=== PATIENT | female | born 2000 | race Caucasian/White ===

== ENCOUNTER → 2023-04-12 | Emergency (ER) | payer BC ==
[~2023-04-12] MED LIST: AMOX/K CLAV 875 MG TAB ONE
--- NOTE | 2023-04-12 22:17 | EDPHYS ---
Physician Documentation [facility] Name: Nae Olivarez Age: 22 yrs Sex: Female : 2000 Arrival Date: 04/12/2023 Time: 21:56 Bed Waiting Private MD: ED Physician Jose Guadalupe Laureano HPI: 04/12 22:13 This 22 yrs old Female presents to ER via Unassigned with complaints of Cat Bite. kb 22:13 Patient is a 22-year-old female who was bitten by her cat yesterday. States her mother kb told her to come in today for possible infection. Denies fever. Slight erythema surrounding the bite. No puncture wound noted, superficial laceration. 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 - Social history:: Smoking status: Reported history of juuling and/or vaping. ROS: 22:15 Constitutional: Negative for fever, chills, and weight loss, kb 22:15 Skin: Positive for laceration(s), of the heel of right hand, 22:15 All other systems are negative, Exam: 22:15 Constitutional: This is a well developed, well nourished patient who is awake, alert, kb and in no acute distress. Head/Face: Normocephalic, atraumatic. ENT: Moist Mucous membranes Cardiovascular: Regular rate Respiratory: Respirations even and unlabored. No increased work of breathing. Talking in full sentences MS/ Extremity: Pulses equal, no cyanosis. Neurovascular intact. Full, normal range of motion. Neuro: Awake and alert, GCS 15, oriented to person, place, time, and situation. Moves all extremities. Normal gait. 22:15 Skin: injury, bite(s), superficial, of the heel of right hand, Vital Signs: 22:25 BP 129 / 81; Pulse 85; Resp 18 S; Temp 99.1(TE); Pulse Ox 99% on R/A; Weight 74.84 kg as6 (R); Height 5 ft. 2 in. (R); Pain 1/10; 22:25 Body Mass Index 30.18 (74.84 kg, 157.48 cm) as6 22:25 Pain Scale: Adult as6 MDM: 22:03 Patient medically screened. kb 22:15 Differential diagnosis: superficial laceration, cellulitis. Data reviewed: vital signs, kb nurses notes. Counseling: I had a detailed discussion with the patient and/or guardian regarding the historical points, exam findings, and any diagnostic results supporting the discharge/admit diagnosis, the need for outpatient follow up, a family practitioner, to return to the emergency department if symptoms worsen or persist or if there are any questions or concerns that arise at home. 22:16 Test considered but Not performed: Labs: cbc, cmp considered but pt is nontoxic in kb appearance, afebrile, bite is superficial with minimal surrounding erythema. No discharge from wound. . Administered Medications: 22:23 Drug: Amoxicillin-Clavulanate PO 875 mg PO once Route: PO; as6 22:28 Follow up: Response: No adverse reaction as6 Disposition: 04/13 05:00 Co-signature as Attending Physician, Jose Guadalupe Laureano MD I agree with the assessment sp4 and plan of care. I reviewed the patient's care provided by the Advanced Practice Provider and agree with the diagnosis and treatment plan. Disposition Summary: 04/12/23 22:17 Discharge Ordered Notes: Location: Home kb Condition: Stable kb Diagnosis - Bitten by cat kb Followup: kb - With: Emergency Department - When: As needed - Reason: Worsening of condition Followup: kb - With: Private Physician - When: 2 - 3 days - Reason: Recheck today's complaints, Continuance of care, Re-evaluation by your physician Discharge Instructions: - Discharge Summary Sheet kb - Animal Bite, Adult, [id number] kb Forms: - Medication Reconciliation Form kb - Thank You Letter kb - Antibiotic Education kb - Prescription Opioid Use kb - Patient Portal Instructions kb - Leadership Thank You Letter Prescriptions: - Augmentin 875-125 mg Oral Tablet - take 1 tablet ORAL route every 12 hours for 10 days; 20 tablet; Refills: 0, kb Product Selection Permitted Signatures: Cori Zaragoza, Lalo Max RN RN as6 Jose Guadalupe Laureano MD MD sp4
--- NOTE | 2023-04-12 22:29 | ER ---
Nurse's Notes [facility] Name: Nae Olivaerz Age: 22 yrs Sex: Female : 2000 Arrival Date: 04/12/2023 Time: 21:56 Bed Waiting Private MD: Diagnosis: Bitten by cat Presentation: 04/12 22:26 Chief complaint: Patient states: her cat bit her last night. Coronavirus screen: At as6 this time, the client does not indicate any symptoms associated with coronavirus-19. Ebola Screen: No symptoms or risks identified at this time. Initial Sepsis Screen: Does the patient meet any 2 criteria? No. Patient's initial sepsis screen is negative. Initial Sepsis Screen: Does the patient have a suspected source of infection? No. Patient's initial sepsis screen is negative. Risk Assessment: Do you want to hurt yourself or someone else? Patient reports no desire to harm self or others. Onset of symptoms was April 11, 2023. 22:26 Acuity: VINEET 5 as6 22:26 Method Of Arrival: Ambulatory as6 Triage Assessment: 22:25 Bite description: bite sustained to heel of right hand is superficial, from animal, as6 from insect by a cat, animal information:. General: Appears in no apparent distress. Behavior is calm, cooperative. Pain: Complains of pain in right hand. Derm: Wound noted heel of right hand. 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 - Social history:: Smoking status: Reported history of juuling and/or vaping. Screenin:27 [facility] ED Fall Risk Assessment (Adult) Score/Fall Risk Level 0 - 2 = Low Risk. Abuse as6 screen: Denies threats or abuse. Denies injuries from another. Nutritional screening: No deficits noted. Tuberculosis screening: No symptoms or risk factors identified. Vital Signs: 22:25 BP 129 / 81; Pulse 85; Resp 18 S; Temp 99.1(TE); Pulse Ox 99% on R/A; Weight 74.84 kg as6 (R); Height 5 ft. 2 in. (R); Pain 04/28; 22:25 Body Mass Index 30.18 (74.84 kg, 157.48 cm) as6 22:25 Pain Scale: Adult as6 ED Course: : Patient arrived in ED. gm2 22:02 Cori Zaragoza FNP-C [facility] kb 22:02 Jose Guadalupe Laureano MD is Attending Physician. kb 22:25 Lalo Salas, RN is Primary Nurse. as6 22: Arm band placed on. as6 22: Triage completed. as6 22: Call light in reach. Provided Education on: abx teaching . as6 22: No provider procedures requiring assistance completed. Patient did not have IV access as6 during this emergency room visit. Administered Medications: 22:23 Drug: Amoxicillin-Clavulanate PO 875 mg PO once Route: PO; as6 22:28 Follow up: Response: No adverse reaction as6 Medication: 22:28 VIS not applicable for this client. as6 Outcome: 22:17 Discharge ordered by MD. kb 22:27 Discharged to home ambulatory, as6 : Condition: stable 22:27 Discharge instructions given to patient, Instructed on discharge instructions, follow up and referral plans. medication usage, Demonstrated understanding of instructions, follow-up care, medications, Prescriptions given X , : Patient left the ED. as6 Signatures: Cori Zaragoza FNP-C FNP-Lalo Maurer, RN RN as6 Caren Baltazar gm2
[2023-04-13 00:19] VITALS: BP 129/81; TEMP 99.1; O2SAT 99
== END ==
LOC: ER 21:56
DX: S60.571A Other superficial bite of hand of right hand, initial encounter (principal); W55.01XA Bitten by cat, initial encounter
CPT/HCPCS: 99283